=== PATIENT | male | born 1940 | race Caucasian/White ===

== ENCOUNTER 2025-04-25 08:19 | Outpatient (CLI) | payer MEDICARE, BC ==
[~2025-04-25 08:19] MED LIST: AMI200T PO; APIX5TAB3 PO; ASPI-611 PO; ATOR40TA72 PO; EMPA10TA PO; FURO20TA4 PO; IODIXANOL 320 MG/ML INFUS..BTL 100ML IV ONE; TAMS-55 PO
[2025-04-25 08:59] LABS: BASOPHILS # (AUTO) 0.1 X10'3 (0-0.2); BASOPHILS % (AUTO) 1.1 % (0-1); EOSINOPHILS # (AUTO) 0.2 X10'3 (0-0.9); EOSINOPHILS % (AUTO) 4.8 % (0-6); HEMATOCRIT 41.9 % (42.0-52.0); HEMOGLOBIN 14.1 g/dl (14.0-17.9); LYMPHOCYTES # (AUTO) 1.4 X10'3 (1.1-4.8); LYMPHOCYTES % (AUTO) 28.9 % (21-51); MEAN CORPUSCULAR HEMOGLOBIN 30.5 PG (27.0-31.0); MEAN CORPUSCULAR HGB CONC 33.7 g/dL (33.0-36.5); MEAN CORPUSCULAR VOLUME 90.3 FL (78-98); MONOCYTES # (AUTO) 0.4 X10'3 (0-0.9); NEUTROPHILS # (AUTO) 2.7 X10'3 (1.8-7.7); NEUTROPHILS % (AUTO) 56.2 % (42-75); PLATELET COUNT 162 X10'3 (140-440); RED BLOOD COUNT 4.64 X10'6 (4.70-6.10); RED CELL DISTRIBUTION WIDTH 16.7 % (11.5-14.5); WHITE BLOOD COUNT 4.9 X10'3 (4.5-11.0)
[2025-04-25 09:12] LABS: APTT 30 SECONDS (22-32); INR 1.2 INR; PROTHROMBIN TIME 11.7 SECONDS (9.0-12.0)
[2025-04-25 09:52] LABS: ALANINE AMINOTRANSFERASE 43 U/L (12-78); ALBUMIN 3.9 G/DL (3.4-5.0); ALBUMIN/GLOBULIN RATIO 1.1 (1.1-1.5); ALKALINE PHOSPHATASE 97 IU/L (46-116); ANION GAP 8 (8-16); ASPARTATE AMINO TRANSFERASE 31 U/L (10-37); BILIRUBIN,TOTAL 1.1 MG/DL (0.1-1.0); BLOOD UREA NITROGEN 13 MG/DL (7-18); BUN/CREATININE RATIO 10.6 (10.0-20.0); CALCIUM 9.2 MG/DL (8.5-10.1); CHLORIDE 101 MMOL/L (99-107); CREATININE 1.23 MG/DL (0.60-1.10); GLUCOSE 105 MG/DL (70-104); POTASSIUM 4.1 MMOL/L (3.5-5.1); SODIUM 138 MMOL/L (135-145); TOTAL CARBON DIOXIDE 29.4 MMOL/L (24-32); TOTAL PROTEIN 7.6 G/DL (6.4-8.2); eGFR 56 ML/MIN
--- NOTE | 2025-04-26 09:50 | RADIOLOGY REPORT ---
Procedure: CT CTA TAVR Reason for study/Clinical History: Chest pain, evaluate for dissection. Comparison Study: None Exam Date: 04/25/2025 09:22 AM TECHNIQUE: Multiplanar reformatted images were generated from volumetric data acquired on a multidetector CT [facility]. Cardiac gating was utilized. Arterial phase images were obtained through the chest, abdomen and pelvis following intravenous administration of contrast material. 149 mL visipaque [address] dose reduction techniques were utilized. 3-D reconstructions were performed on an independent work station. Radiation Dose Information: CT Dose: CTDI volume is 65 mGy. 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 Graft is patent. There is a penetrat ing atherosclerotic ulcer/ aneurysm at the proximal margin of the graft measuring up to 15 mm. Distal aneurysm sac is largely thrombosed measuring up to 54 mm. Aortic arch anatomy is conventional. Ther e is conventional coronary artery anatomy. Diffuse calcified atherosclerotic plaque. There is a larson nt left renal artery graft. No central pulmonary embolism. There is normal dimension of the main pulmonary artery. Heart is normal. There are no intracardiac filling defects. No pericardial effusion. Mediastinum: There is no significant intrathoracic or axillary lymphadenopathy by CT size criteria. Lungs: Emphysematous changes in both lungs. Bilateral apical pleural-parenchymal scarring with nodula r components measuring up to 16 mm on the right and 13 mm on the left. Calcified granuloma right uppe r lung. Atelectasis and scarring in the lung bases. Pleura: No effusion or pneumothorax. Chest wall: No acute abnormality. Abdomen and Pelvis: Liver: Normal in appearance. Gallbladder: Normal in appearance. Spleen: Normal in appearance. Pancreas: Pancreatic duct is dilated measuring up to 7 mm. No definite pancreatic mass identified. Adrenals: Normal in appearance. Kidneys: Mild bilateral hydronephrosis. Marked distention of the bladder. Bowel: Mild nonspecific gaseous distention of small bowel. Peritoneum: No free air or free fluid. Lymph nodes: No lymphadenopathy by CT size criteria. Pelvic structures: No pelvic mass. Bones: Grade 1 anterolisthesis of L3 on L4 and L4 on L5. Multilevel degenerative disease. IMPRESSION: 1. TAVR planning with vascular measurements as described above. 2. Status post graft repair of the descending thoracic aorta. Distal descending aortic aneurysm is l argely thrombosed measuring up to 54 mm. Small penetrating atherosclerotic ulcer versus aneurysm at t he proximal margin of the graft measuring up to 15 mm. No intervention, recommend continued follow-up . Patent left renal artery graft. 3. Smoking-related lung disease. Bilateral apical nodules could be partially calcified granuloma. Con carpet installation specialist further evaluation with PET-CT and/or CT-guided biopsy. Alternatively recommend continued follo w-up. 4. Dilated pancreatic duct without obvious cause. Recommend further evaluation with MRI and MRCP of the abdomen with contrast. Mild bilateral hydronephrosis with marked distention of the bladder, consi riana bladder outlet obstruction. Clinical correlation and continued follow-up is recommended. HS:Y
== END 2025-04-25 23:59 | disposition home or self-care (01) ==
LOC: RAD 08:19
PROVIDERS: ATTEND Internal Medicine Cardiovascular Disease
DX: J43.9 Emphysema, unspecified (principal); I35.0 Nonrheumatic aortic (valve) stenosis; R06.02 Shortness of breath; I65.29 Occlusion and stenosis of unspecified carotid artery; I71.23 Aneurysm of the descending thoracic aorta, without rupture; J98.4 Other disorders of lung; N13.30 Unspecified hydronephrosis; K86.89 Other specified diseases of pancreas; N32.89 Other specified disorders of bladder
CPT/HCPCS: 36415; 71275; 74174; 75572; 80053; 85025; 85610; 85730; Q9967